=== PATIENT | female | born 1990 | race Caucasian/White ===

== ENCOUNTER 2018-09-15 05:16 | Day surgery (SDC) | payer MEDICAID, SELFPAY ==
[2018-09-13 13:12] LABS: Hematocrit 40.5 % (37-47); Hemoglobin 13.5 g/dl (12.0-15.0); Mean Corp Hgb Conc 33.3 g/gl (32-36); Mean Corpuscular Hgb 28.1 pg (27.0-32.0); Mean Corpuscular Volume 84.4 fL (81-99); Mean Platelet Vol. 11.1 fl (6.2-12.0); Platelet Count 253 K/mm3 (150-450); RBC Distribution Width CV 13.9 % (11.6-14.6); White Blood Count 8.8 K/mm3 (4.4-11.0)
[2018-09-13 13:19] LABS: Scan Indicated on CBC? Y/N NO
[2018-09-13 13:46] LABS: Thyroid Stim Hormone (TSH) 9.44 uIU/mL (0.358-3.74)
--- NOTE | 2018-09-14 07:31 | PCM.HP.OB ---
- Problem List (1) Sterilization Status: Acute (2) Multiparity Status: Acute History Date of Admission: 09/15/18 History of this : This is a 27 year-old who desires permanent sterilization. She is 100% certain she does not want more children in the future. She is . She has 3 children and had 3 prior C/S's. Medical History: Medical History (Last Updated 09/14/18 @ 07:32 by Shruti Granados DO) Depression F32.9 Hypothyroid E03.9 MILA (obstructive sleep apnea) G47.33 Obesity E66.9 Surgical History: Surgical History (Last Updated 09/14/18 @ 07:32 by Shruti Granados DO) History of delivery Z98.891 Allergies morphine Allergy (Verified 09/08/18 14:08) Rash Latex, Natural Rubber Adverse Reaction (Verified 09/08/18 14:08) Rash Home Medications: Home Medications Levothyroxine [Synthroid] 100 mcg PO DAILY 09/08/18 Oxycodone HCl/Acetaminophen [Percocet 5/325] 1 tablet PO Q8H PRN PRN 09/08/18 Zanaflex 4 mg PO TID PRN PRN 09/14/18 Smoking Status: Former smoker Alcohol: None History Past Pregnancies: Past Pregnancies Delivery Date Name GA/Weeks Outcome Route Weight Gender Labor Length Anesthesia Delivery Location Provider FOB Review of Systems Constitutional: Denies: Malaise, Fatigue Eyes: Denies: Blurred vision HEENT: Denies: Head Aches, Hearing Changes Cardiovascular: Denies: Chest Pain Respiratory: Denies: Cough, Shortness of Breath Gastrointestinal: Denies: Abdominal Pain, Constipation, Diarrhea, Nausea, Vomiting Genitourinary: Denies: Dysuria Gynecological: Denies: Vaginal discharge Skin: Denies: Lesions, Rash Neurological: Denies: Blurred vision, Confusion, Headaches, Numbness, Tingling, Seizures Psychiatric: Reports: Depression Hematologic/ Lymphatic: Denies: Easy Bruising, Easy Bleeding Physical Exam General: Alert, No apparent distress HEENT: Atraumatic Cardiovascular: Regular rate Lungs: Clear to auscultation Abdomen: Soft, Non Tender, Non-Distended Extremities:: No edema Neurological: Neuro grossly intact Assessment/Plan All Active Problems Sterilization (Acute) Multiparity (Acute) This is a 27 year-old who desires permanent sterilization. R/b/a of laparoscopic bilateral salpingectomy were discussed and she was consented. She is 100% certain she does not want children in the future and understands this is a permanent procedure. She understands risk of regret. Patient desires to proceed with sterilization.
[2018-09-15 05:39] LABS: Internal QC Validated? YES +Cl - CLEAR BKGD; Pregnancy, Urine Negative Negative
[2018-09-15 05:41] VITALS: BP 136/82; PULSE 83; RESP 14; TEMP 36.9; O2SAT 98; BMI 49.2
--- NOTE | 2018-09-15 07:23 | DCINST_ITS ---
You will use the following diet at home:: No restrictions Discharge Activity: May not drive while taking narcotic pain medications., May Shower Return to work on:: 09/19/18 May resume sexual activity in: No Restrictions Weight Bearing Status: Weight bearing as tolerated Lifting Restrictions: No repetitive lifting > 25 pounds Call your doctor if your incision/area has: Sudden Increased Bleeding, Increased Pain/ Swelling, Increased Redness, Foul Smelling Discharge, Swelling at the incision site Call your doctor if you observe: Fever of 101 or Higher, Inability to urinate, Inability to have a bowel movement, Using more than one pad per hour, Shortness of breath, Dizziness, Chest pain, Increased palpitations (irregular heartbeat), Calf discomfort, Uncontrolled pain Suture Line Care: Avoid Pulling/Pushing Cleanse incision/area with: Soap & Water Allergies/Adverse Reactions: Allergies morphine Allergy (Verified 09/08/18 14:08) Rash Latex, Natural Rubber Adverse Reaction (Verified 09/08/18 14:08) Rash Medications to take at Discharge Levothyroxine [Synthroid] 100 mcg PO DAILY 09/08/18 Oxycodone HCl/Acetaminophen [Percocet 5/325] 1 tablet PO Q8H PRN PRN 09/08/18 Zanaflex 4 mg PO TID PRN PRN 09/14/18 Orders to be completed after discharge: Type & Screen Time Frame: 09/08/18, Facility: [facility], Location: Laboratory CBC-Complete Blood Cnt No Diff Time Frame: 09/08/18, Location: Laboratory Primary Care Physician: Margarita Sheffield MD [Primary Care Provider] - Test Results: Test results from this visit will be discussed in further detail at your follow- up appointment, if applicable. Please Follow Up With: Shruti Granados DO When: 1-2 weeks Proposed Discharge Date: 09/15/18
--- NOTE | 2018-09-15 07:23 | PCM.OPRPT ---
Problem List (1) Sterilization Status: Acute (2) Multiparity Status: Acute Report of Operation Date of Procedure: 09/15/18 Pre-Operative Diagnosis: Desires permanent sterilization, multiparity Post-Operative Diagnosis: As above Surgery/Procedure Performed:: Laparoscopic bilateral salpingectomy Description of Surgical Findings:: Normal appearing uterus. Right ovary and fallopian tube normal, with minimal adhesions of the mid-fallopian tube to the pelvic side wall. Left ovary normal. Left fallopian tube completely adhered to the left pelvic side wall. Normal pelvic CDS. Normal appearing liver edge and appendix Type of Anesthesia:: General Specimen's removed: Right fallopian tube. Segment of the left fallopian tube, fibriated ends not removed due to adhesions. Drains: None Estimated Blood Loss (mL): 10 cc Fluids Replaced: 1400 cc Description of Procedure: General anesthesia adequate. Patient prepped and draped in usual sterile fashion in dorsal lithotomy position in yellow fin stirrups. A weighted speculum was placed in the vagina to expose the cervix. A single tooth tenaculum was placed on the anterior lip of the cervix, and a uterine manipulator was placed. Gloves were changed and attention was turned to the abdominal portion of the case. A 5 mm infraumbilical incision was made and the port was attempted to be placed under direct visualization, but the trocar and port were not long enough given the patient's body habitus. A longer 5 mm trocar and port were then used to enter into the abdomen under direct visualization. Once confirmed intraperitoneal, the abdomen was insufflated. Two 5 mm lateral ports were placed. The abdomen and pelvis were inspected and findings noted as above. The left fallopian tube was identified and followed out to the fimbriated end. The left fallopian tube was completely adhered to the pelvic side wall. The left ureter was unable to be visualized due to adhesions of the colon to the pelvic side wall. The left fallopian tube was cauterized and transected using the Ligasure device starting at the uterine cornua. A 2 cm segment of the left fallopian tube was removed. Majority of the fallopian tube was removed, and the fimbriated ends were remaining given the adhesions and inability to identify the ureter. The right fallopian tube was slightly adhered at the middle of the tube to the side wall. The right fallopian tube was cauterized and transected using the Ligasure device in two segments given the adhesions. The right fallopian tube was completely removed. Hemostasis was noted. The lateral ports were removed and hemostasis was noted. The abdomen was slowly exsufflated and hemostasis was noted. The infraumbilical port was then removed. The skin was closed with Monocryl and Dermabond was placed over the incisions. All instruments were removed from the vagina. Instrument counts were correct. The patient tolerated the procedure well and was taken to the recovery room in stable condition. Grafts/Implants Used: None - Complications None - Admit VTE Documentation VTE Present on Admission: No VTE Mechan Device Prophylaxis: SCD's VTE Pharm Prophylaxis ordered?: No
--- NOTE | 2018-09-15 07:30 | FALS_PTH ---
PATIENT: ANAYA LOPEZ LOC: [facility] [place] U#:[id number] AGE/SX: 27/F ROOM: RE09/15/[address]: Dr. Shruti Granados DO : 1990 BED: DIS: 09/15/2018 SPEC #: [id number] RECD: 09/15/18 09:50 STATUS: ARTURO RECrow #: [id number] CONNIE: 09/15/18 07:[address]: Shruti Granados DEPT: SURGICAL PATHOLOGY RECD BY: Zhou Arauz ENTERED: 09/15/18 13:09 SP TYPE: FALL TUBES OTHR DR: Dr. Margarita Sheffield MD Tissues: Fallopian tube Procedures: Surgery Specimen Level II HEADER OPERATION: Laparoscopic salpingectomy PRE-OP DIAGNOSIS: Desires permanent sterilization TISSUE SUBMITTED: Bilateral fallopian tubes MICROSCOPIC DIAGNOSIS Right and left fallopian tubes, bilateral partial salpingectomies: Complete segments of fallopian tubes. Benign paratubal cyst. AM:harry 09/16/18 MICROSCOPIC DESCRIPTION Slides are reviewed. GROSS DESCRIPTION Received is one container labeled with the patient's name and designated bilateral fallopian tubes. The specimen consists of two fallopian tubes (three fragments) with an average length of 2 cm and has an average diameter of 0.5 cm. Each fragment is differentially inked with black, blue and green ink, sectioned and fuels sales representative sections from each fragment is submitted in two cassettes. / AM:harry 09/15/18 TC:5 CPT: 11842 x2
[2018-09-15] MEDS: Bupivacaine Mpf 0.5% 30 ML VIAL (08:19)
[2018-09-15 08:30] VITALS: BP 127/93; BP 136/82; PULSE 62; RESP 18; TEMP 36.2; O2SAT 96
[2018-09-15 08:45] VITALS: BP 136/82; BP 154/92; PULSE 70; RESP 18; O2SAT 98
[2018-09-15 09:00] VITALS: BP 136/82; BP 147/92; PULSE 60; RESP 18; O2SAT 98
[2018-09-15 09:17] VITALS: BP 136/82; BP 145/98; PULSE 58; RESP 16; TEMP 36.7; O2SAT 99
[2018-09-15 09:56] VITALS: BP 133/86; BP 136/82; PULSE 70; RESP 18; TEMP 36.7; O2SAT 98
== END 2018-09-15 09:57 | disposition home or self-care (01) ==
LOC: SDC 05:17 → AC 05:17
PROVIDERS: Anesthesiology; Family Provider Internal Medicine; PCP Internal Medicine; Referring Provider Obstetrics & Gynecology; Visit Provider Obstetrics & Gynecology
PROC: (CPT 58661; principal; 2018-09-15 07:15)
DX: Z30.2 Encounter for sterilization (principal); N83.8 Other noninflammatory disorders of ovary, fallopian tube and broad ligament; N73.6 Female pelvic peritoneal adhesions (postinfective); E66.01 Morbid (severe) obesity due to excess calories; E03.9 Hypothyroidism, unspecified; Z64.1 Problems related to multiparity; Z68.42 Body mass index [BMI] 45.0-49.9, adult; Z87.891 Personal history of nicotine dependence; Z79.899 Other long term (current) drug therapy
CPT/HCPCS: 00840; 58661; 36415; 81025; 84443; 85027; 86850; 86900; 88302; 93005; J7120; J2405